=== PATIENT | female | born 2005 | race Caucasian/White ===

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

== ENCOUNTER 2025-04-21 12:18 | Emergency (ER) | payer OTHER, SELFPAY ==
--- NOTE | ~2025-04-21 | XR_ITS ---
X-rays right humerus Indication: Fall Comparison: None Technique: 2 views right humerus Findings/Impression: 1. No fracture or other acute bony abnormality. Reviewed, dictated and finalized at location R.
[2025-04-21 12:29] VITALS: BP 127/82; PULSE 75; RESP 20; TEMP 36.8; O2SAT 100
--- NOTE | 2025-04-21 12:36 | ED_ITS ---
HPI - General Adult General Chief complaint: Fall Stated complaint: fell down steps History of Present Illness HPI narrative: 19-year-old female patient presents to [facility] with complaints of right upper arm pain. Patient states she was going down her basement steps and slipped and fell down about 7 steps hitting the back of the right arm. Denies hitting head of loss of consciousness. Denies elbow pain or shoulder pain on the right side. Patient states she did ice it prior to arrival. Related Data Home Medications ?Medication ?Instructions ?Recorded ?Confirmed ?Last Taken ?Type adapalene 0.1 % topical gel 1 applic topical QHS 02/02 Unknown History (Differin) spironolactone 100 mg tablet 100 mg PO DAILY 02/02/22 Unknown History dupilumab 300 mg/2 mL subcutaneous mg subcut 04/21/25 Unknown History pen injector (Dupixent) metformin 500 mg tablet,extended mg PO 04/21/25 Unkno wn History release 24 hr Allergies Allergy/AdvReac Type Severity Reaction Status Date / Time adhesive AdvReac Mild RASH Verified 04/21/25 12:33 Review of Systems Review of Systems: CONSTITUTIONAL: Denies fever, chills, or sweats. EYES: Denies visual changes, redness, or discharge. ENT: Denies rhinorrhea, congestion, sore throat, or otalgia. CARDIOVASCULAR: Denies chest pain, palpitations, or edema. RESPIRATORY: Denies cough or dyspnea. GASTROINTESTINAL: Denies abdominal pain, nausea, vomiting, or diarrhea. GENITOURINARY: Denies dysuria or hematuria. SKIN: Denies rash or itching. MUSCULOSKELETAL: Denies back pain, joint pain, or myalgia. Positive right upper arm pain NEUROLOGIC: Denies headache, numbness, or weakness. PSYCHIATRIC: Denies anxiety or depression. [facility] Past Medical History Medical History Eczema Allergic rhinitis Family History Family History Other Depression Heart disease Social History Social History Smoking status: Never smoker Second hand tobacco smoke exposure: No Alcohol intake: never Substance use: never Substance use type: does not use Living arrangements: with family Occupation/Education: student Additional occupation/education comments: Gender identity (if verbalized by the patient): Female Sexual Orientation (if Verbalized by the Patient): Straight or Heterosexual Comments At the time of my signature I agree with nursing past medical history, surgical, social, and family history. There is no relevant family history pertinent to the presenting complaint. Exam Narrative: GENERAL: Well-appearing, well-nourished, and in no acute distress. HEAD: Normocephalic, atraumatic. EYES: PERRLA and EOMI. ENT: Nares clear, no rhinorrhea or epistaxis. Mucous membranes moist. NECK: Supple. No lymphadenopathy CHEST: Clear to auscultation. No respiratory distress. HEART: Regular rate and rhythm. No murmur heard. Normal peripheral pulses. ABDOMEN: Soft, nontender, nondistended, normal active bowel sounds. EXTREMITIES: Patient does have some ecchymosis noted to the posterior side of the right upper arm. No shoulder pain no elbow pain or tenderness. Patient does have excellent range of motion of the right arm. Distal radial pulses 2+. SKIN: Warm, dry, no rash. NEURO: No focal deficits. Alert and oriented x3. Course Course Level of Care: Express Care Visit Reevaluation(s) Reevaluation #1: Re-evaluated patient notified her that the x-ray is negative for any acute fractures. Discussed with her this is most likely a contusion highly recommend she take Tylenol ibuprofen for the pain and ice the area to help with bruising and swelling. We will go ahead and set her today for sling for comfort. Patient verbalized understanding denies any other questions or concerns at this time. Date: 04/21/25 Time: 13:09 Vital Signs Vital signs: Vital Signs Temperature 36.8 C 04/21/25 12:29 Pulse Rate 75 04/21/25 12:29 Respiratory Rate 20 04/21/25 12:29 Blood Pressure 127/82 04/21/25 12:29 Pulse Oximetry 100 04/21/25 12:29 Oxygen Delivery Room Air 04/21/25 12:29 Temperature 36.8 C 04/21/25 12:29 Pulse Rate 75 04/21/25 12:29 Respiratory Rate 20 04/21/25 12:29 Blood Pressure 127/82 04/21/25 12:29 Pulse Oximetry 100 04/21/25 12:29 Oxygen Delivery Room Air 04/21/25 12:29 Vital signs reviewed. Medical Decision Making MDM Narrative Medical decision making narrative: Plan care patient's x-ray the right humerus to assess for any acute fracture. I will reassess patient once this has resulted. Differential Diagnosis Differential Diagnosis: Differential diagnosis: Elbow strain, subluxed radial head, growth plate fracture,supracondylar fracture, subsequent compartment syndrome, posterior dislocation, anterior dislocation, radial head fracture, anterior fat pad. Neurovascular compromise, anterior shoulder dislocation, posterior dislocation, facture, AC separation, shoulder cuff tear, bursitis, tendinitis Vital Signs Vital Signs: Vital Signs Temperature 36.8 C 04/21/25 12:29 Pulse Rate 75 04/21/25 12:29 Respiratory Rate 20 04/21/25 12:29 Blood Pressure 127/82 04/21/25 12:29 Pulse Oximetry 100 04/21/25 12:29 Oxygen Delivery Room Air 04/21/25 12:29 Temperature 36.8 C 04/21/25 12:29 Pulse Rate 75 04/21/25 12:29 Respiratory Rate 20 04/21/25 12:29 Blood Pressure 127/82 04/21/25 12:29 Pulse Oximetry 100 04/21/25 12:29 Oxygen Delivery Room Air 04/21/25 12:29 Imaging Data Radiologist's impression: [facility] [address] [place] [address] XRay Report Signed Patient: Gris Landaverde : 2005 MR#: [id number] Age: 19 Acct:[id number] Loc: [facility] ADM Date: 04/21/25Attending Dr: Ordering Physician: Fatou Arguello APRN Date of Service: 04/21/25 Procedure(s): XR humerus RT Accession Number(s): [id number] cc: Roman Putnam MD; Fatou Arguello APRN~ X-rays right humerus Indication: Fall Comparison: None Technique: 2 views right humerus Findings/Impression: 1. No fracture or other acute bony abnormality. Reviewed, dictated and finalized at location R. Please be advised this is a medical document. It is intended for [id number] communication. It is written in medical language and may contain unfamiliar abbreviations or verbiage. Medical documents are intended to carry relevant information, facts as evident, and the clinical opinion of the practitioner at the time of the encounter. This report may have been done utilizing a voice recognition system. Attempts have been made to correct errors. However, there may be uncorrected grammatical, spelling, and recognition errors present. The file time of this note does not necessarily represent the time of service. Dictated By: Elijah Black MD 04/21/25 1254 Signed By: <Electronically signed by Elijah Black MD in OV> Discharge Plan Discharge Clinical Impression: Contusion of arm, right Qualifiers: Encounter type: initial encounter Qualified Code(s): S40.021A - Contusion of right upper arm, initial encounter Patient Disposition: Home Condition: Stable Instructions: Antibiotic Form, Contusion in Adults (ED) Additional Instructions: Avoid weight bearing until the pain subsides. Ice to the area 20-30 minutes 4-6 times a day Elevate above heart orthopedic splint as directed for comfort for the next 5-7 days Tylenol for lesser pain Ibuprofen regularly for the next 2-3 days for the inflammation Follow up with your primary care provider if the condition is not improving within 1 week or sooner if the Condition worsens with numbness, tingling, decrease sensation with weakness to seek ER. Patient Language: Salvadorean Prescriptions: No Action metformin 500 mg tablet extended release 24 hr PO Dupixent Pen 300 mg/2 mL pen injector SUBCUT estradiol 0.01 % (0.1 mg/gram) cream 1 g vaginal .every other day Qty: 42.5 3RF lidocaine 5 % gel 1 ea topical BID PRN (Reason: pain) Qty: 113 3RF spironolactone 100 mg tablet 100 mg PO DAILY adapalene [Differin] 0.1 % gel 1 applic topical QHS dupilumab 100 mg/0.67 mL syringe 300 mg subcut WEEKLY Qty: 1.34 0RF Follow-up/Referrals: Roman Putnam MD [Primary Care Provider, [facility]] Time of Disposition: 13:07
== END 2025-04-21 13:15 | disposition home or self-care (01) ==
PROVIDERS: Emergency Provider Nurse Practitioner Family; PCP Family Medicine
DX: S40.021A Contusion of right upper arm, initial encounter (principal); W10.9XXA Fall (on) (from) unspecified stairs and steps, initial encounter
CPT/HCPCS: 73060; 99213; A4565; G0463